=== PATIENT | female | born 1950 | race Two or more races ===

== ENCOUNTER 2024-07-25 22:46 | Emergency (ER) | payer OTHER ==
[~2024-07-25] VITALS: Ht 154.9 cm; Wt 54.1 kg
--- NOTE | 2024-07-25 23:45 | ECG ---
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
[2024-07-26] MEDS: MORPHINE SULFATE 4 MG/ML SYR/VIAL IV ONE (00:15)
[2024-07-26 00:23] LABS: Basophils # (auto) 0.1 10 ^3/uL (0-0.2); Basophils % (auto) 0.7 % (0.0-2.0); Eosinophils # (auto) 0 10 ^3/uL (0-0.8); Eosinophils % (auto) 0.4 % (0.0-7.0); Hematocrit 29.4 % (36.0-46.0); Lymphocytes # (auto) 1.1 10 ^3/uL (0.4-5.4); Lymphocytes % (auto) 11.4 % (10.0-50.0); Mean Corpuscular Hemoglobin 31.7 pg (28.0-32.0); Mean Corpuscular Hgb Conc. 33.9 g/dL (32.0-36.0); Mean Corpuscular Volume 93.4 fL (80.0-100.0); Monocytes # (auto) 0.6 10 ^3/uL (0-1.3); Monocytes % (auto) 5.8 % (0.0-12.0); Neutrophils # (auto) 8.2 10 ^3/uL (1.6-8.6); Neutrophils % (auto) 81.7 % (37.0-80.0); Platelet Count (auto) 147 10^3/uL (140-450); Red Blood Cells 3.15 10^6/uL (4.0-5.20); Red Cell Distribution Width 18.6 % (11.8-14.3); White Blood Cell 10.1 10^3/uL (4.4-10.8)
[2024-07-26 00:35] LABS: Chloride 106 mmol/L (98-107); Potassium 3.7 mmol/L (3.5-5.1); Sodium 141 mmol/L (136-145)
[2024-07-26 00:36] LABS: Anion Gap 12 (5-15); Calcium 9.4 mg/dL (8.7-10.4); Carbon Dioxide 23 mmol/L (20-31)
[2024-07-26 00:41] LABS: BUN/Creatinine Ratio 17.3 (10.0-20.0); Blood Urea Nitrogen 35 mg/dL (9-23); Glucose 220 mg/dL (74-106)
[2024-07-26 00:47] LABS: Urine Bacteria FEW /hpf (None Seen); Urine Blood Negative /uL (Negative); Urine Clarity Turbid (Clear); Urine Color Light-Yellow (Yellow); Urine Mucus FEW (None Seen); Urine Protein, UAD Negative (Negative); Urine Specific Gravity 1.014 (1.001-1.035); Urine Squamous Epithelial Cell MOD /hpf (<5); Urine Urobilinogen Normal (Negative); Urine WBC 4 /HPF (0-5)
--- NOTE | 2024-07-26 00:50 | DVH ---
CHEST RADIOGRAPH Indication: cp Technique: Single frontal view of the chest was obtained COMPARISON: None FINDINGS: Lines and Tubes: AICD noted overlying left chest wall. Lungs: Clear Pleura: No effusion. No pneumothorax. Cardiomediastinal contours: Unremarkable Bones: Unremarkable IMPRESSION: No abnormality demonstrated.
--- NOTE | 2024-07-26 01:43 | ED.PDOC ---
HPI Comments 74-year-old female complaining of midepigastric pain that radiates to her center back. States it started while she was at home on her tablet came on unprovoked. Nothing makes it better, nothing makes it worse. Patient reports 8/10 pain. Has been having intermittent nausea. Patient reports having open heart surgery in April, and pacemaker placed July 01. Chief Complaint: Abdominal Pain Time Seen by MD: 23:15 Reviewed Notes: Nurses Notes, Medications, Allergies Allergies: Coded Allergies: NO KNOWN ALLERGIES (Unverified , 07/25/24) Information Source: Patient Mode of Arrival: Wheelchair Severity: Severe Past Medical History Surgical History: CABG, Pacemaker INTEGRATION PROJECT MANAGER History: No Pertinent INTEGRATION PROJECT MANAGER History Constitutional: denies: chills, diaphoresis, fatigue, fever, malaise, sweats, weakness, others EENTM: denies: blurred vision, double vision, ear bleeding, ear discharge, ear drainage, ear pain, ear ringing, eye pain, eye redness, hearing loss, mouth pain, mouth swelling, nasal discharge, nose bleeding, nose congestion, nose pain, photophobia, tearing, throat pain, throat swelling, voice changes, others Respiratory: denies: cough, hemoptysis, orthopnea, SOB at rest, shortness of breath, SOB with excertion, stridor, wheezing, others Cardiovascular: reports: chest pain; denies: dizzy spells, diaphoresis, Dyspnea on exertion, edema, irregular heart beat, left arm pain, lightheadedness, palpitations, PND, syncope, others Gastrointestinal: denies: abdomen distended, abdominal pain, blood streaked bowels, constipated, diarrhea, dysphagia, difficulty swallowing, hematemesis, melena, nausea, poor appetite, poor fluid intake, rectal bleeding, rectal pain, vomiting, others Physical Exam General Appearance: Moderate Distress, Normal HEENT: Normal ENT Inspection, Pharynx Normal, TMs Normal Neck: Full Range of Motion, Non-Tender, Normal, Normal Inspection Respiratory: Chest Non-Tender, Lungs Clear, No Accessory Muscle Use, No Respira tory Distress, Normal Breath Sounds Cardiovascular: No Edema, No JVD, No Murmur, No Gallop, Normal Peripheral Pulses, Regular Rate/Rhythm Breast Exam: Deferred Gastrointestinal: Epigastric (Tender to palpation), No Pulsatile Mass, Normal Bowel Sounds, Soft Genitalia: Deferred Pelvic: Deferred Rectal: Deferred Extremities: No calf tenderness, Normal capillary refill, Normal inspection, Normal range of motion, Non-tender, No pedal edema Musculoskeletal : Apperance: Normal 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 Was a procedure done?: No CP Differential Dx Differential Diagnosis: Angina, Anxiety / Panic Attack Differential Diagnosis: Aortic dissection, Chest Wall Pain X-Ray, Labs, Meds, VS Vital Signs Date Time Temp Pulse Resp B/P (MAP) Pulse Ox O2 Delivery O2 Flow Rate FiO2 07/26/24 04:23 97.8 81 20 102/51 (68) 98 97.8 07/26/24 04:21 81 20 97 Room Air* 0 21 07/26/24 03:54 97.8 84 20 92/45 (61) 98 97.8 07/25/24 23:25 78 07/25/24 23:05 97.8 84 18 125/67 (86) 97 97.8 Lab Test 07/26/24 03:10 07/26/24 01:04 07/26/24 00:10 07/25/24 23:16 Range/Units Troponin I High Sensitivity 18 18 17 </=34 ng/L White Blood Count 10.1 4.4-10.8 10^3/uL Red Blood Count 3.15 L 4.0-5.20 10^6/uL Hemoglobin 10.0 L 12.2-16.2 g/dL Hematocrit 29.4 L 36.0-46.0 % Mean Corpuscular Volume 93.4 80.0-100.0 fL Mean Corpuscular Hemoglobin 31.7 28.0-32.0 pg Mean Corpuscular Hemoglobin Concent 33.9 32.0-36.0 g/dL Red Cell Distribution Width 18.6 H 11.8-14.3 % Platelet Count 147 140-450 10^3/uL Mean Platelet Volume 9.4 6.9-10.8 fL Neutrophils (%) (Auto) 81.7 H 37.0-80.0 % Lymphocytes (%) (Auto) 11.4 10.0-50.0 % Monocytes (%) (Auto) 5.8 0.0-12.0 % Eosinophils (%) (Auto) 0.4 0.0-7.0 % Basophils (%) (Auto) 0.7 0.0-2.0 % Neutrophils # (Auto) 8.2 1.6-8.6 10 ^3/uL Lymphocytes # (Auto) 1.1 0.4-5.4 10 ^3/uL Monocytes # (Auto) 0.6 0-1.3 10 ^3/uL Eosinophils # (Auto) 0 0-0.8 10 ^3/uL Basophils # (Auto) 0.1 0-0.2 10 ^3/uL Nucleated Red Blood Cells 0.0 % Sodium Level 141 136-145 mmol/L Potassium Level 3.7 3.5-5.1 mmol/L Chloride Level 106 98-107 mmol/L Carbon Dioxide Level 23 20-31 mmol/L Anion Gap 12 5-15 Blood Urea Nitrogen 35 H 9-23 mg/dL Creatinine 2.02 H 0.550-1.02 mg/dL Glomerular Filtration Rate Calc 26 >90 mL/min BUN/Creatinine Ratio 17.3 10.0-20.0 Serum Glucose 220 H 74-106 mg/dL Calcium Level 9.4 8.7-10.4 mg/dL Urine Color Light-yellow Yellow Urine Clarity Turbid H Clear Urine pH 5.0 5.0-9.0 Urine Specific [place] 1.014 1.001-1.035 Urine Protein Negative Negative Urine Ketones Negative Negative Urine Blood Negative Negative /uL Urine Nitrite Negative Negative Urine Bilirubin Negative Negative Urine Urobilinogen Normal Negative mg/dL Urine Leukocyte Esterase Negative Negative /uL Urine RBC <1 0 - 4 /hpf Urine Microscopic WBC 4 0-5 /HPF Urine Squamous Epithelial Cells Mod <5 /hpf Urine Bacteria Few H None Seen /hpf Urine Mucus Few None Seen Urine Glucose 4+ H Normal mg/dL Current Medications Medications (Trade) Dose Ordered Sig/Gustavo Route Start Time Stop Time Status Last Admin Lidocaine HCl (Xylocaine 2% Viscous) 5 ml ONCE ONCE MT 07/26/24 02:00 07/26/24 02:01 DC 07/26/24 04:14 Al Hydrox/Mg Hydrox/Simethicone (Maalox Plus) 30 ml ONCE ONCE PO 07/26/24 02:00 07/26/24 02:01 DC 07/26/24 04:14 X-Ray, Labs, Meds, VS Comment CT ABDOMEN PELVIS WITH MULTIPLE CHRONIC CHANGES DISCUSSED WITH THE PATIENT AND DAUGHTER THEY STATE THEY ARE CURRENTLY FOLLOWING UP WITH A SPECIALIST REGARDING CT CHEST NOTED 7 MM NODULES AND PROBABLE THICKENING ARE ALL CURRENTLY BEING WORKED UP NOT ARE WELL AWARE. COPY OF CT RESULTS OF ABDOMEN AND PELVIS GIVEN TO PATIENT. ADVISED TO KEEP THE APPOINTMENT FOLLOW UP FOR DEDICATED CT CHEST. NOTED LARGE AMOUNT OF STOOL LIKELY SECONDARY TO THE PATIENT'S, COMPLAINING OF ABDOMINAL PAIN. NO ACUTE ABDOMINAL FINDINGS NOTED. RECOMMENDED MIRALAX PRESCRIPTION HOWEVER PATIENT WAS TOLD TO STATES SHE WILL PICK SOME MEDICATION UP [id number] SHE WAS CURRENTLY ON STOOL SOFTENERS. LIES TO KEEP HER APPOINTMENT AND FOLLOW UP WITH THE PCP IN 1-2 DAYS. WE DISCUSSED ER RETURN PRECAUTIONS PATIENT AND DAUGHTER INDICATED IN HIS STANDING AGREE WITH DISCHARGE PLAN OF CARE. Time of 1ST Reevaluation: 05:04 Reevaluation 1ST: Improved Patient Education/Counseling: Diagnosis, Treatment, Prognosis, Need For Follow Up Family Education/Counseling: Diagnosis, Treatment, Prognosis, Need For Follow Up Departure 1 Departure Time of Disposition: 01:46 Impression: Primary Impression: Chest pain at rest Additional Impressions: Gastritis Qualified Codes: K29.70 - Gastritis, unspecified, without bleeding Constipation Qualified Codes: K59.00 - Constipation, unspecified Disposition: 01 HOME / SELF CARE / HOMELESS Condition: Stable Discharged With: Relative, Significant Other Critical Care Note Critical Care Time?: No Stability Stability form required: No Heart Score Heart Score: Heart Score Response (Comments) Value History N/A 0 EKG N/A 0 Age N/A 0 Risk Factors N/A 0 Troponin N/A 0 Total 0 LASHAUN VELEZ [facility] Jul 26, 2024 01:43 JUANA MAZARIEGOS [facility] Jul 26, 2024 05:04
--- NOTE | 2024-07-26 04:02 | DVH ---
Examination: ABPL CLINICAL INDICATION: abd pain COMPARISON: None. CONTRAST USED: None. TECHNIQUE: A plain CT study of the abdomen and pelvis is performed. The examination was performed w ith [address] scan done according to ALARA (As Low as Reasonably Achievable). Multiplana r reconstructions were obtained. FINDINGS: CT ABDOMEN: Lung Base: The evaluation of lung bases demonstrates no focal infiltrates or pleural effusion. Post sternotomy status. Pacemaker wires in the right atrium and ventricle. Diffuse atherosclerotic calci fication of the aortic root , left anterior descending and circumflex coronary artery. A 7 mm pleur al-based nodule in the posterior basal segment of left lower lobe. Probable focal pleural thickening . Suggest further evaluation with CT thorax. Unenhanced Liver: Normal size liver with normal attenuation. No obvious focal lesion in liver. Ther e is no intrahepatic biliary radicle dilatation. Mildly distended gallbladder. The common bile duct is not dilated. Unenhanced Pancreas: The pancreas is normal in size and shape. No focal lesion is seen within. Th e peripancreatic fat-planes are normal. Unenhanced Spleen: The spleen is normal in size and does not show any focal abnormality. Retroperitoneum: Both adrenal glands are normal in size and morphology in this unenhanced CT scan. There is no significant retroperitoneal lymphadenopathy. The kidneys are normal in size. No renal calculus or hydronephrosis. Perinephric spaces are clear. Vessels: Aorta, IVC and the mesenteric vessels cannot be commented in this unenhanced CT scan. Diff use atherosclerotic calcification of the abdominal aorta, infrarenal aorta and common iliac arteries approximately 50-60% narrowing of the bilateral common iliac artery and 40-50% narrowing of the infra renal aorta. Stomach and small bowel: The bowel loops are unremarkable. There is no ascites. Omental fat contai mati bilateral inguinal hernia. Skeletal System: Mild osteopenia. Bilateral pars defect at L5-S1 level with grade 1 anterolisthesis of L5 over S1. Severe facet arthropathy. Moderate to severe narrowing of the neural foramina. Mod erate degenerative changes in the sacroiliac and superolateral hip joint and multilevel severe degene rative facet arthropathy. No acute osseous abnormality or focal osseous lesion. CT PELVIS: Appendix is not discretely visualized. No features of acute appendicitis. Colon and large bowel: Moderate amount of fecal residue in the large bowel loops. No inflammatory cristobal wel wall thickening, diverticulosis or diverticulitis. Bladder: The urinary bladder is unremarkable. Post hysterectomy status. No adnexal mass. No pelvic lymphadenopathy is identified. No abnormal fluid collection is seen. IMPRESSION: 1. No acute intra-abdominal pathology. No abdominal fat stranding or collection. 2. Mildly distended gallbladder. No obvious wall thickening. No evidence of any radiopaque calculu s. Pancreas and appendix appear unremarkable. No evidence of renal or ureteric calculus. 3. Moderate amount of fecal residue in the large bowel loops. No inflammatory bowel wall thickening , diverticulosis or diverticulitis. Small bowel loops appear unremarkable. No features of bowel obs truction. 4. Scattered atherosclerotic vascular disease of the abdominal, infrarenal aorta and visceral arteri es. Diffuse atherosclerotic calcification of the infrarenal aorta and common iliac arteries with kinga roximately 40-50% narrowing of the infrarenal aorta and 50-60% narrowing of the bilateral common noé c arteries. No aneurysmal dilatation. 5. Post hysterectomy status. No adnexal mass. Small omental fat containing bilateral inguinal herni a. 6. Mild osteopenia. Bilateral pars defect at L5-S1 level with grade 1 anterolisthesis of L5 over S1. Severe facet arthropathy. Moderate to severe narrowing of the neural foramina. Moderate degenerat patrice changes in the sacroiliac and superolateral hip joint and multilevel severe degenerative facet ar thropathy. 7. Poststernotomy status. Pacemaker wires in the right atrium and ventricle. Diffuse atherosclerot ic calcification of the aortic root , left anterior descending and circumflex coronary artery. A 7 mm pleural-based nodule in the posterior basal segment of left lower lobe. Probable focal pleural thic kening. Suggest further evaluation with CT thorax. Electronically Signed 07/26/2024 04:01 Milagro Bravo
[2024-07-26] MEDS: MAALOX PLUS or MAALOX 30 ML PO ONE (04:14)
[2024-07-26] MEDS: ONDANSETRON HCL 4 MG/2 ML VIAL IV ONE (04:14)
[2024-07-26] MEDS: LIDOCAINE VISCOUS 2% 15ML UD MT ONE (04:14)
[2024-07-26 04:21] VITALS: PULSE 81; RESP 20; O2SAT 97
[2024-07-26 04:23] VITALS: BP 102/51; PULSE 81; RESP 20; TEMP 97.8; O2SAT 98
== END 2024-07-26 05:35 | disposition home or self-care (01) ==
LOC: ER 22:46
DX: R07.89 Other chest pain (principal); K29.70 Gastritis, unspecified, without bleeding; K59.00 Constipation, unspecified; Z95.0 Presence of cardiac pacemaker; Z95.1 Presence of aortocoronary bypass graft
CPT/HCPCS: 36415; 71045; 74176; 80048; 81001; 84484; 85025; 93005; J2405